=== PATIENT | female | born 1950 | race Caucasian/White ===

== ENCOUNTER → 2019-04-24 | Outpatient (CLI) | payer MEDICARE | END | disposition home or self-care (01) | LOC: CFH 09:44 | PROVIDERS: ATTEND Nurse Practitioner Primary Care | DX: M41.84 Other forms of scoliosis, thoracic region (principal); M54.6 Pain in thoracic spine; R53.83 Other fatigue; M85.80 Other specified disorders of bone density and structure, unspecified site; R10.9 Unspecified abdominal pain; E55.9 Vitamin D deficiency, unspecified | CPT/HCPCS: 72072 ==